=== PATIENT | female | born 2000 | race Caucasian/White ===

== ENCOUNTER 2019-05-22 07:13 | Emergency (ER) | payer OTHER ==
[2019-05-22] MEDS ORDERED: GLUCOPHAGE1000 MG PO (07:32)
[2019-05-22] MEDS ORDERED: ALDACTONE100 M1 PO (07:32)
[2019-05-22 08:33] LABS: EOS # 0.1 (0.04-0.40); EOS % 0.7 % (0.1-4.0); HEMATOCRIT 42.3 % (35.0-45.0); HEMOGLOBIN 13.9 g/dL (12.0-15.0); LYMPH# 2.1 (1.20-3.40); MEAN CELL VOLUME 89 fl (78-95); MEAN CORPUSCULAR HEMOGLOBIN 29 pg (26-32); MEAN CORPUSCULAR HGB CONC 33 g/dL (33-37); MEAN PLATELET VOLUME 9.9 fl (7.4-10.4); MONO # 0.4 (0.10-0.60); NEU # 5.5 (1.40-6.50); PLATELET COUNT 270 K/mm3 (130-400); RED BLOOD COUNT 4.74 M/mm3 (4.10-5.30); RED CELL DISTRIBUTION WIDTH 13.3 % (11.5-14.5); WHITE BLOOD COUNT 8.1 K/mm3 (4.8-10.8)
[2019-05-22 08:53] LABS: ALBUMIN 4.2 g/dL (3.5-5.0); POTASSIUM 4.2 mmol/L (3.5-5.1)
[2019-05-22 08:54] LABS: CALCIUM 9.9 mg/dL (8.3-10.5)
[2019-05-22 08:56] LABS: TOTAL PROTEIN 6.8 g/dL (6.4-8.3)
[2019-05-22 08:57] LABS: TOTAL BILIRUBIN 0.4 mg/dL (0.2-1.2)
[2019-05-22 09:02] LABS: MAGNESIUM 2.11 mg/dL (1.70-2.20)
[2019-05-22 09:31] VITALS: BP 109/68
== END 2019-05-22 09:24 | disposition home or self-care (01) ==
LOC: ED 07:13
PROVIDERS: Nurse Practitioner
DX: R25.3 Fasciculation (principal); F17.210 Nicotine dependence, cigarettes, uncomplicated